=== PATIENT | female | born 1965 | race Caucasian/White ===

== ENCOUNTER 2017-11-09 14:22 | Emergency (ER) | payer SELFPAY ==
[2017-11-09] MEDS ORDERED: Ondansetron INJ* 2 MG/ML VIAL IV ONE (15:00)
--- NOTE | 2017-11-09 15:00 | ED ---
HPI Chest Pain - HPI Summary HPI Summary: 52 y/o male presents to the ED c/o sudden onset CP starting 2 hours [employer]. Pt was sitting in the car when it started. CP feeling better now. Pain described as a pressure, located in the mid-sternal region. Pt never had these symptoms before. Pain rated 5/10. Denies PMHx DM, HTN. Pt vomited in the ED, and states she feels better after it. Associated sx: nausea. This is scribe Ed Anette documenting for attending Jose Miguel Caraballo MD - History of Current Complaint Chief Complaint: EDChestPainROMI Time Seen by Provider: 11/09/17 14:38 Hx Obtained From: Patient Onset/Duration: Started Hours Ago Initial Severity: Moderate Current Severity: Mild Pain Intensity: 5 Chest Pain Location: Mid Sternal Chest Pain Radiates To:: Epigastric Character: Pressure/Squeezing Aggravating Factor(s): Nothing Alleviating Factor(s): Other: - vomiting Associated Signs and Symptoms: Positive: Chest Pain, Nausea, Vomiting - Allergy/Home Medications Allergies/Adverse Reactions: Allergies Allergy/AdvReac Type Severity Reaction Status Date / Time Sulfa (Sulfonamide Allergy Hives Verified 11/09/17 14:43 Antibiotics) Home Medications: Home Medications Magnesium Oxide [Magnesium] 400 mg PO DAILY 11/09/17 [History Confirmed 11/09/17 ] Multivitamins/Minerals TAB* [Theragran/minerals TAB*] 1 tab PO DAILY 11/09/17 [ History Confirmed 11/09/17] Vitamin B Complex CAP* [B Complex CAP*] 1 cap PO DAILY 11/09/17 [History Confirmed 11/09/17] PMH/Surg Hx/FS Hx/Imm Hx Previously Healthy: No Endocrine/Hematology History: Denies: Hx Diabetes Cardiovascular History: Denies: Hx Hypertension - Immunization History Immunizations Up to Date: Yes Infectious Disease History: No Infectious Disease History: Denies: Traveled Outside the [place] in Last 30 Days - Family History Known Family History: Positive: Unknown - Social History Alcohol Use: None Hx Substance Use: No Substance Use Type: Reports: None Hx Tobacco Use: No Smoking Status (MU): Never Smoked Tobacco Review of Systems Constitutional: Negative Eyes: Negative ENT: Negative Positive: Chest Pain Respiratory: Negative Positive: Vomiting, Nausea Genitourinary: Negative Musculoskeletal: Negative Skin: Negative Neurological: Negative Psychological: Normal All Other Systems Reviewed And Are Negative: Yes Physical Exam - Summary Physical Exam Summary: VITAL SIGNS: Reviewed. GENERAL: Patient is a well-developed and nourished female who is lying comfortable in the stretcher. Patient is not in any acute respiratory distress. HEAD AND FACE: No signs of trauma. No ecchymosis, hematomas or skull depressions. No sinus tenderness. EYES: PERRLA, EOMI x 2, No injected conjunctiva, no nystagmus. EARS: Hearing grossly intact. Ear canals and tympanic membranes are within normal limits. MOUTH: Oropharynx within normal limits. NECK: Supple, trachea is midline, no adenopathy, no JVD, no carotid bruit, no c- spine tenderness, neck with full ROM. CHEST: Symmetric, no tenderness at palpation LUNGS: Clear to auscultation bilaterally. No wheezing or crackles. CVS: Regular rate and rhythm, S1 and S2 present, no murmurs or gallops appreciated. ABDOMEN: Soft, non-tender. No signs of distention. No rebound no guarding, and no masses palpated. Bowel sounds are normal. EXTREMITIES: FROM in all major joints, no edema, no cyanosis or clubbing. NEURO: Alert and oriented x 3. No acute neurological deficits. Speech is normal and follows commands. SKIN: Dry and warm Triage Information Reviewed: Yes Vital Signs On Initial Exam: Initial Vitals Temp Pulse Resp BP Pulse Ox 98.2 F 67 16 126/67 99 11/09/17 14:25 11/09/17 14:25 11/09/17 14:25 11/09/17 14:25 11/09/17 14:25 Vital Signs Reviewed: Yes Diagnostics - Vital Signs Vital Signs Temp Pulse Resp BP Pulse Ox 11/09/17 14:25 98.2 F 67 16 126/67 99 - Laboratory Result Diagrams: 11/09/17 15:56 11/09/17 15:56 Lab Statement: Any lab studies that have been ordered have been reviewed, and results considered in the medical decision making process. - Radiology CXR Xray Interpretation: No Acute Changes - NO ACTIVE CARDIOPULMONARY DISEASE Radiology Interpretation Completed By: Radiologist - Additional Comments Diagnostic Additional Comments: 15:09 - SR @ [address] elevations. Q wave in III. Re-Evaluation - Re-Evaluation 1 Re-Evaluation Time: 18:13 Change: Improved Comment: Discussed test results and findings, plan of care Chest Pain Course/Dx - Course Assessment/Plan: Patient is a 52-year-old female who presents to the emergency department with a chief complaint of having chest pain. Patient reports that she developed this pain after she ate a hamburger. During the physical exam actually the pain is in the epigastric area and the distal the chest. While she was waiting in the emergency department she developed nausea and vomiting and after she vomited SYMPTOMS resolved. At this time the patient is asymptomatic. Blood test results without any significant abnormality. 2 troponins 4 hours apart at 0.00. EKG is a normal sinus rhythm without any ST elevation. Chest x-ray impression: No active cardiopulmonary disease. In the emergency room course the patient has remained asymptomatic, all her symptoms have resolved and not returned. I discussed all the findings and test results with the patient and the patients and the need to follow up with the primary care physician. She was instructed to return to the emergency department if she develops any other symptoms. The patient and the patients understand and agree. The patient is hemodynamically stable alert and oriented 3. - Diagnoses Provider Diagnoses: Chest pain Discharge - Sign-Out/Discharge Documenting (check all that apply): Patient Departure - Discharge Plan Condition: Stable Disposition: HOME Patient Education Materials: Chest Pain (ED) Referrals: [facility] [Outside] - 4 Days (PLEASE F/U IN 3-5 DAYS) Additional Instructions: RETURN TO THE ED FOR CHANGING/WORSENING SYMPTOMS - Billing Disposition and Condition Condition: STABLE Disposition: Home
--- NOTE | 2017-11-09 15:18 | RAD ---
HISTORY: CP, chest pain COMPARISONS: None VIEWS: 1: frontal portable view of the chest at 3:05 PM FINDINGS: LINES AND TUBES: None. CARDIOMEDIASTINAL SILHOUETTE: The cardiomediastinal silhouette is normal for portable technique. PLEURA: The costophrenic angles are sharp. No pleural abnormalities are noted. LUNG PARENCHYMA: The lungs are clear. ABDOMEN: The upper abdomen is clear. There is no subphrenic gas. BONES AND SOFT TISSUES: Degenerative changes are noted along the spine. IMPRESSION: NO ACTIVE CARDIOPULMONARY DISEASE.
[2017-11-09 16:04] LABS: ABS Basophils 0 10^3/ul (0-0.2); ABS Eosinophils 0.1 10^3/ul (0-0.6); ABS Lymphocytes 1.2 10^3/ul (1.0-4.8); ABS Monocytes 0.7 10^3/ul (0-0.8); ABS Neutrophils 11.7 10^3/ul (1.5-7.7); ABS Nucleated RBC 0 10^3/ul; Eosinophil % 0.8 % (0-6); Hematocrit 39 % (35-47); Hemoglobin 12.7 g/dl (12.0-16.0); Lymphocyte % 9.1 % (25-47); Mean Corpuscular HGB Conc 33 g/dl (31-36); Mean Corpuscular Hemoglobin 30 pg (27-31); Mean Corpuscular Volume 92 fL (80-97); Nucleated Red Blood Cells % 0; Platelet Count 320 10^3/ul (150-450); Red Blood Count 4.24 10^6/ul (4.00-5.40); Red Cell Distribution Width 14 % (10.5-15); White Blood Count 13.7 10^3/ul (3.5-10.8)
[2017-11-09 16:29] LABS: EGFR Non-African American 85.8 (>60)
[2017-11-09 18:46] VITALS: BP 132/78
== END 2017-11-09 18:46 | disposition home or self-care (01) ==
LOC: ED 14:22
DX: R07.9 Chest pain, unspecified (principal); R11.2 Nausea with vomiting, unspecified; Z88.0 Allergy status to penicillin
CPT/HCPCS: 36415; 71045; 80053; 82553; 83605; 83735; 83880; 84443; 84484; 85025; 93005; 96374; 99283; J2405